=== PATIENT | male | born 1940 | race Caucasian/White ===

== ENCOUNTER 2016-10-26 05:06 | Day surgery (SDC) | payer OTHER ==
[~2016-10-26 05:06] MED LIST: ASA5GR PO; ASAB PO; AVANDIA8 MG PO; COREG25 PO; COREGCR20 PO; CRESTOR10 PO; DITRO5 PO; EXCEDRIN PM PO; FLONASE NAS; HUMALOGPEN SC; HYDROCHLOROT12.5 MG PO; HYT5 PO; IMOD PO; INVOKANA100 MG PO; JANUVIA100 MG PO; JANUVIA50 PO; L20 PO; LANTUS SC; LEXAPRO10 PO; LIPITOR20 PO; METAMUCIL CAN7 OZ PO; MULTIPLE VIT PO; NIASPAN500 PO; NORV10 PO; NOVOLOG SC; PRILO PO; PRIN10 PO; PRIN20 PO; PRIN5 PO; T PO; TOUJEO SQ; TYLENOL PM PO; ULTRAM50 PO; Z100 PO; [UNRECOGNIZED DRUG - OTHER] OR
== END 2016-10-26 10:02 | disposition home or self-care (01) ==
LOC: SDC 05:06
PROVIDERS: Orthopaedic Surgery
PROC: 3E0R3BZ Introduction of Anesthetic Agent into Spinal Canal, Percutaneous Approach (ICD-10-PCS; 2016-10-26)
PROC: B01BYZZ Fluoroscopy of Spinal Cord using Other Contrast (ICD-10-PCS; 2016-10-26)
PROC: 3E0R33Z Introduction of Anti-inflammatory into Spinal Canal, Percutaneous Approach (ICD-10-PCS; principal; 2016-10-26 07:15)
DX: M54.16 Radiculopathy, lumbar region (principal); E11.9 Type 2 diabetes mellitus without complications; I25.10 Atherosclerotic heart disease of native coronary artery without angina pectoris; I10 Essential (primary) hypertension; E78.00 Pure hypercholesterolemia, unspecified; M19.90 Unspecified osteoarthritis, unspecified site; Z98.41 Cataract extraction status, right eye; Z98.42 Cataract extraction status, left eye; Z98.890 Other specified postprocedural states
CPT/HCPCS: 82962; J1040; J2250; J3010; Q9967